=== PATIENT | male | born 1990 | race Caucasian/White ===

== ENCOUNTER 2024-03-18 04:01 | Day surgery (SDC) | payer OTHER ==
[~2024-03-18] VITALS: Ht 188 cm; Wt 120.0 kg
[2024-03-18] VITALS (226 sets, daily range): BP systolic 101–156; BP diastolic 60–102
--- NOTE | 2024-03-18 07:00 | NUR ---
Patient arrived to the ANR suite, identification and demographics confirmed. Patient to room 9, AAO, ambulatory, vitals obtained, ID/allergy/fall bands placed, changed into hospital gown, DEEPAK hose, and non-slip socks. Procedure and timeline explained for treatment and discharge. All questions answered and the patient presents no concerns at this time.
--- NOTE | 2024-03-18 07:17 | NUR ---
Dr. Robertson telephoned with patient intake information including usage, dose, last dose/time taken and initial vital signs. Patient history and allergies reviewed with MD. Orders received for 10 mg PO Valium and 0.3 mg PO Clonidine now. Will reassess per protocol in 1.5 hours and update MD with assessment and vitals.
[2024-03-18] MEDS ORDERED: FAMOTIDINE 20 MG/TAB PO PRN (07:30)
[2024-03-18] MEDS ORDERED: cloNIDine HCL 0.1 MG/TAB PO PRN (07:30)
[2024-03-18] MEDS ORDERED: CYANOCOBALAMIN 500 MCG/TAB ( B12) PO PRN (07:30)
[2024-03-18] MEDS ORDERED: diazePAM 5 MG/TAB PO PRN ×2 (07:30→08:30)
[2024-03-18] MEDS ORDERED: PANTOPRAZOLE SODIUM Sesquihydr 40 MG/TAB PO PRN (07:30)
[2024-03-18] MEDS ORDERED: SCOPOLAMINE 1.5 MG DIS TD PRN (07:30)
[2024-03-18] MEDS ORDERED: LACTATED RINGER'S 1,000 ML IV PRN ×3 (07:30→19:00)
[2024-03-18] MEDS ORDERED: ALBUTEROL SULFATE 2.5 MG VIAL IN PRN (07:30)
[2024-03-18] MEDS ORDERED: ASCORBIC ACID 4,000 MG in SODIUM CHLORIDE 0.9% 1,000 ML IV SCH (08:00)
[2024-03-18 08:53] LABS: BASO% 0.2 % (0-3); EOS% 0.1 % (0-8); HEMOGLOBIN 13.2 g/dl (14.0-18.0); IMMATURE GRANULOCYTES 0.2 % (0.0-5.0); LYMPH% 21.8 % (15-41); MEAN CELL VOLUME 90.7 fL CALC (80.0-100.0); MEAN CORPUSCULAR HGB 29.9 pG CALC (26.0-32.0); MONO% 3.6 % (2-13); NEUT# 7.91 thou/uL (1.82-7.42); NEUT% 74.1 % (42-76); RED BLOOD COUNT 4.41 mill/uL (4.70-6.10); RED CELL DISTRI WIDTH 12.2 % (11.5-15.5)
[2024-03-18 08:55] LABS: ALBUMIN 4.4 g/dL (3.2-5.0); BILIRUBIN, TOTAL 0.5 mg/dL (0.2-1.3); CREATININE 0.7 mg/dL (0.7-1.3); TOTAL PROTEIN 7.4 g/dL (6.3-8.2)
[2024-03-18] MEDS ORDERED: LIDOCAINE HCL 1% (10MG/ML) 100 MG/10 ML MDV IV PRN (09:05)
[2024-03-18] MEDS ORDERED: diazePAM 5 MG/TAB VT PRN (09:05)
[2024-03-18] MEDS ORDERED: ONDANSETRON HCl 4 MG/2 ML SDV IV PRN ×3 (09:05→19:00)
[2024-03-18] MEDS ORDERED: OCTREOTIDE ACETATE 100 MCG/VIAL SDV SC PRN (09:05)
[2024-03-18] MEDS ORDERED: PROPOFOL 10 MG/ML 100ML VIAL IV PRN (09:05)
[2024-03-18] MEDS ORDERED: DEXAMETHASONE SODIUM PHOSPHATE PF 10 MG/ML SDV IV PRN ×2 (09:05→19:00)
[2024-03-18] MEDS ORDERED: STERILE WATER FOR IRRIGATION 1,000 ML BTL IR PRN (09:05)
[2024-03-18] MEDS ORDERED: THIAMINE HCL 100 MG/ML 2ML VIAL IV PRN (09:05)
[2024-03-18] MEDS ORDERED: POTASSIUM CHLORIDE 20 MEQ/100 ML BAG IV PRN (09:05)
[2024-03-18] MEDS ORDERED: cloNIDine HYDROCHLORIDE 100 MCG/ML 10 ML INJ IV PRN (09:05)
[2024-03-18] MEDS ORDERED: cloNIDine HCL 0.1 MG/TAB VT PRN (09:05)
[2024-03-18] MEDS ORDERED: MIDAZOLAM HCL 2 MG/2 ML VIAL IV PRN (09:05)
[2024-03-18] MEDS ORDERED: SUCCINYLCHOLINE CHLORIDE 20 MG/ML 10ML VIAL IV PRN (09:05)
[2024-03-18] MEDS ORDERED: ROCURONIUM BROMIDE 10 MG/ML 5ML VIAL IV PRN (09:05)
[2024-03-18] MEDS ORDERED: DiphenhydrAMINE HCL 50 MG/ML SDV IV PRN (09:05)
[2024-03-18] MEDS ORDERED: LIDOCAINE HCL 1% (10MG/ML) 100 MG/10 ML MDV VT PRN ×2 (09:05)
[2024-03-18] MEDS ORDERED: PROPOFOL 100 ML IV PRN (09:05)
[2024-03-18] MEDS ORDERED: MAGNESIUM SULFATE HEPTAHYDRATE 100 ML IV PRN (09:05)
[2024-03-18] MEDS ORDERED: NALTREXONE HCL 50 MG/TAB VT PRN (09:05)
--- NOTE | 2024-03-18 09:28 | NUR ---
Patient resting comfortably in bed. Easily aroused, maintains focus, and drifts back to sleep. No signs of active withdrawal or distress noted at this time. Continuous SPO2, rhythm, and respiratory monitoring initiated. IVF @ 250 mL/HR, room air, VSS.
--- NOTE | 2024-03-18 10:45 | NUR ---
Dr. Robertson at bedside to assess pt and discuss POC and procedure.
--- NOTE | 2024-03-18 11:39 | NUR ---
Induction Note Patient to ANR procedure room. Time out performed at 1125. Patient placed on monitors, Dejah hugger, bilateral wrist restraints applied for ET tube protection. Versed 5mg given IV push at 1130 Tourniquet applied to right arm Lidocaine 100mg given at 1134 IV push followed by Rocoronium 10mg at 1135 IV push and held for 90 seconds. Propofol bolus of 130mg given at 1137 IV push. Succinylcholine 80mg given IV push at 1138. Smooth intubation with 7.5 ETT. Positive CO2. Positive Auscultation for air exchange. ET secured with tube workman by Dr. Robertson 23 @ the lip. Patient placed on ventilator for spontaneous ventilation. Placed on Propofol IV drip at 1139. OG inserted. Positive air on auscultation. Positive gastric content. Stomach washed at this time.
--- NOTE | 2024-03-18 11:55 | NUR ---
OG close note Stomach washed at this time. Naltrexone 50 mg with Clonidine 0.3 mg via OG tube. OG will be clamped for 45 minutes.
--- NOTE | 2024-03-18 12:40 | NUR ---
OG open note OG open at this time. Gastric content draining into drainage bag. OG to drain for 45 minutes. Propofol will be titrated down based on patient.
--- NOTE | 2024-03-18 13:25 | NUR ---
OG close note Stomach washed at this time. Naltrexone 50 mg with Clonidine 0.3 mg via OG tube. OG will be clamped for 45 minutes.
[2024-03-18] MEDS ORDERED: hydrALAZINE HCL 20 MG/ML VIAL(1 ML) IV SCH (14:00)
--- NOTE | 2024-03-18 14:55 | NUR ---
OG close note Stomach washed at this time. Naltrexone 50 mg with Clonidine 0.2 mg via OG tube. OG will be clamped for 45 minutes.
--- NOTE | 2024-03-18 16:25 | NUR ---
No OG close at this time. Patient minimally reacting to treatment. Vitals, total Naltrexone & Clonidine, current Propofol infusion rate, treatment duration, and patient assessment discussed with Dr. Robertson. No orders for medication administration at this time. OG will remain open to allow time for patient to continue reacting to therapy.
--- NOTE | 2024-03-18 17:35 | NUR ---
OG close note Stomach washed at this time. Naltrexone 12.5 mg, Valium 10mg, and Clonidine 0.2 mg via OG tube. OG will be clamped for 20-30 minutes for closing dose.
[2024-03-18] MEDS ORDERED: NALTREXONE50 MG PO (17:43)
[2024-03-18] MEDS ORDERED: CLONIDINE0.1 MG PO (17:43)
[2024-03-18] MEDS ORDERED: KLONOPIN2 MG PO (17:44)
--- NOTE | 2024-03-18 18:05 | NUR ---
Extubation note Closing medications given Benadryl 50mg IV push, Decadron 10mg IV push,Magnesium 4 grams IV, Zofran 8mg IV push, Octreotide 100mcg SC. Stomach washed out prior to extubation. Suctioned gastric content. OG removed. Patient extubated. Propofol Discontinued. Wrist restraints removed. Dejah hugger Removed. See ANR Moderate sedate recovery record for further notes and assessment.
--- NOTE | 2024-03-18 18:28 | NUR ---
PHONE CALL PLACED TO PT FATHER JOSE LUIS. UPDATE PROVIDED AT THIS TIME. ALL QUESTIONS AND CONCERNS ANSWERED AT THIS TIME.
[2024-03-18] MEDS ORDERED: LABETALOL HCL 100 MG/20 ML VIAL IV ONE (18:33)
--- NOTE | 2024-03-18 18:39 | NUR ---
ALL PT PERSONAL BELONGINGS PLACED IN LOCKER RED #1 IN ANR DEPARTMENT.
[2024-03-18] MEDS ORDERED: ACETAMINOPHEN 500 MG TAB PO PRN (19:00)
[2024-03-18] MEDS ORDERED: HALOPERIDOL LACTATE 5 MG/ML SDV IV PRN (19:00)
[2024-03-18] MEDS ORDERED: PROMETHAZINE HCL 12.5 MG in SODIUM CHLORIDE 0.9% 50 ML IV PRN (19:00)
[2024-03-18] MEDS ORDERED: PROMETHAZINE HCL 25 MG in SODIUM CHLORIDE 0.9% 50 ML IV PRN (19:00)
[2024-03-18] MEDS ORDERED: ACETAMINOPHEN 1,000 MG/100 ML VIAL IV PRN (19:00)
[2024-03-18] MEDS ORDERED: KETOROLAC TROMETHAMINE 30 MG/ML SDV IV PRN (19:00)
[2024-03-18] MEDS ORDERED: LORazepam 2 MG/ML IV PRN ×2 (19:00)
--- NOTE | 2024-03-18 19:00 | NUR ---
Patient to room 283 in no acute distress. Transfer of care to Med-Surg [facility]. 2L NC placed per orders, IVF to continue at 100ml/hr. VSS. Patient resting comfortably, no adventitious breath sounds appreciated. Bed alarm set. See chart/EMAR for procedural details and assessments. Handoff of care at the time of this note.
--- NOTE | 2024-03-18 20:00 | NUR ---
RECEIVED REPORT FROM ANR NURSE. PT NOTED LAYING IN BED, SEMI FOWLERS ON RM AIR. PT IV SITE APPEARS HEALTHY AND INTACT WITH FLUIDS RUNNING PER EMAR. CASINO WORKER ASSISTED APPLIANCE TESTER WITH CHANGING AND CLEANING PT UP [employer] EPISODE. AFTER REPOSITONING IN BED PT WAS SHOUTING "I HAVE TO PEE" COACHED PT INTO USING URINAL WITH ASSISTANCE, PT DID HAVE DIFFICULTY STARTING STREAM. AFTER PT VOIDED, PT BECAME VERY RESTLESS IN BED. TOSSING TURNING AND CONTINUE TO TRY TO SLING SELF FORWARD TO SIT UP. WILL FOLLOW UP PER EMAR WITH MEDICATION FOR AGITATION. NURSING ASSESSMENT COMPLETED. PT HAVE MUTIPLE SCABS IN VARIOUS SIZES THROUGH OUT UPPER AND LOWER EXTREMETIES AND TRUNK OF BODY. ON PT RT CALF, CLOSED WOUND NOTED WITH NO DISCHARGE OR ODOR PRESENT. PT SPEECH GARBLED AT THIS TIME BUT COMPREHENSIVE. VSS. DENIES ANY N/V/P. BED ALARM ON AND SAFETY PRECAUTIONS IN PLACE.
[2024-03-18] MEDS ORDERED: PATIENT' OWN MED CONTROLLED 1 EA DOSE IV PRN (21:00)
--- NOTE | 2024-03-18 21:00 | NUR ---
PT STATING "I HAVE TO PEE" DID NOT WANT TO USE URINAL LAYING DOWN. PARTY HOST/HOSTESS ASSITED DRIVER HELPER WITH STANDING PT UP [facility] BED, PT WAS ABLE TO STAND WITH STEADY GAIT, EYES OPEN. VOIDED INTO URINAL, DIFFICULTY STARTING STREAM BUT DENIED ANY PAIN. ASSISTED PT BACK INTO BED. POSITIONED ONTO LEFT SIDE WITH PILLOW FOR COMFORT. BED ALARM ON AND SAFETY PRECAUTIONS IN PLACE.
[2024-03-18] MEDS ORDERED: cloNIDine HCL 0.1 MG/TAB PO SCH (23:00)
[2024-03-18] MEDS ORDERED: clonazePAM 1 MG/TAB PO PRN (23:00)
--- NOTE | 2024-03-19 02:00 | NUR ---
PT C/O HE CAN NOT SLEEP, FEELING RESTLESS AND AGITATED. MEDICATION PER EMAR ADMINISTERED TO PT FOR AGITATION. ENCOURAGED PT TO RELAX. WARM BLANKET AND HOT PACKS APPLIED TO FOR COMFORT. NO S/S OF DISTRESS. BED ALARM ON AND SAFETY PRECAUTIONS IN PLACE.
[2024-03-19 03:47] VITALS: BP 140/82
[2024-03-19] MEDS ORDERED: cloNIDine HCL 0.1 MG/TAB PO PRN (04:00)
[2024-03-19] MEDS ORDERED: NALTREXONE HCL 50 MG/TAB PO SCH ×2 (04:00→09:00)
[2024-03-19] MEDS ORDERED: clonazePAM 1 MG/TAB PO PRN ×2 (04:00→08:00)
--- NOTE | 2024-03-19 04:00 | NUR ---
PT LAYING IN BED, SMEI FOWLERS. ADMINSITERED 0400 MEDICATIONS PER EMAR, TOLERATED WELL. PT IS A/OX3 AT THIS TIME. DENIES ANY N/V/P. NO S/S OF DISTRESS. CALL LIGHT WITHIN REACH, BED ALARM ON AND SAFETY PRECAUTIONS IN PLACE.
[2024-03-19 04:58] LABS: BASO% 0.1 % (0-3); HEMATOCRIT 39.1 % (39.0-50.0); HEMOGLOBIN 12.5 g/dl (14.0-18.0); IMMATURE GRANULOCYTES 0.2 % (0.0-5.0); MEAN CELL VOLUME 92.7 fL CALC (80.0-100.0); MEAN CORPUSCULAR HGB 29.6 pG CALC (26.0-32.0); MONO% 3.1 % (2-13); NEUT# 13.57 thou/uL (1.82-7.42); NEUT% 81.6 % (42-76); RED BLOOD COUNT 4.22 mill/uL (4.70-6.10); RED CELL DISTRI WIDTH 12.4 % (11.5-15.5)
[2024-03-19 05:16] LABS: ALBUMIN 4.2 g/dL (3.2-5.0); BILIRUBIN, TOTAL 0.5 mg/dL (0.2-1.3); CREATININE 0.8 mg/dL (0.7-1.3); MAGNESIUM 2.4 mg/dL (1.6-2.3); POTASSIUM 4.1 mmol/l (3.5-5.1); TOTAL PROTEIN 7.2 g/dL (6.3-8.2)
[2024-03-19] MEDS ORDERED: ACETAMINOPHEN 325 MG/TAB PO SCH (08:00)
[2024-03-19] MEDS ORDERED: PANTOPRAZOLE SODIUM Sesquihydr 40 MG/TAB PO SCH (08:00)
[2024-03-19] MEDS ORDERED: cloNIDine HCL 0.1 MG/TAB PO SCH ×2 (08:00→09:00)
--- NOTE | 2024-03-19 08:00 | NUR ---
patient a/o x3; room air; breathing unlabored and even; denied any pain; denied any n/d/v at this time; potassium and mag levels within reach, patinet tolerated medication admin, patient having some sneezing, iv site clean and intact running with LR @100; patient tolerated breakfast, called provider to inform Dr. Robertson of pateint status and labs,verbal order was givem per EMAR: call light within reach, verbalized understanding on how to use, personal items in ANR locker; bed in lowest postion; bed alar activated
[2024-03-19 08:49] VITALS: BP 130/68
[2024-03-19] MEDS ORDERED: Cholecalciferol 2,000 UNIT/TAB PO PRN (09:00)
[2024-03-19] MEDS ORDERED: ACETAMINOPHEN 500 MG TAB PO PRN (09:00)
[2024-03-19] MEDS ORDERED: MAGNESIUM OXIDE 400 MG/TAB PO PRN (09:00)
--- NOTE | 2024-03-19 10:20 | NUR ---
patient had an epoide of bowel movement and took a shower, assited pateint with new clothes to wear; patient walked down hallway with chief underwriter, stand by assit; informed patient if he wants then he can sit in chair in room and watch tv, reviwed POC with him; call light within reach,verbalized understanding on how to use, bed in lowest postion
--- NOTE | 2024-03-19 12:00 | NUR ---
patient a/ol x3; walking around in room; denied any pain; denied any n/d/v at this time; iv site saline locked with no issues; no s/s of distress at this time; patient has his personal belonging; no complaints at this time; talked to patinet regarding discharge; call light within reach, bed in lowest postion
--- NOTE | 2024-03-19 13:00 | NUR ---
patient ambulating in hallway with no assist
--- NOTE | 2024-03-19 14:25 | NUR ---
IV site discontinued, cath intact. No edema , no redness, voices no discomfort. Discharge instructions given. Patient verbalizes understanding of same. Discharged in stable condition via Ambulatory to Home with family. All belongings sent with pt.
== END 2024-03-19 14:20 | disposition home or self-care (01) | DRG 897 ==
LOC: ANR 04:01 → MS2 04:05 → ANR 10:00
PROVIDERS: ATTEND Anesthesiology
DX: F11.20 Opioid dependence, uncomplicated (principal)
CPT/HCPCS: J1100; J2060; J2354; J3475; J3490